=== PATIENT | female | born 2000 ===

== ENCOUNTER 2023-12-25 11:16 | Emergency (ER) | payer SELFPAY ==
[2023-12-25 11:23] VITALS: BP 120/67; PULSE 100; RESP 16; TEMP 37.2; O2SAT 100
--- NOTE | 2023-12-25 13:18 | PC.NURSE ---
Called out several times by Christie ARGUELLO, no [email or web address]
== END 2023-12-25 13:48 | disposition left against medical advice (07) ==
DX: Z53.21 Procedure and treatment not carried out due to patient leaving prior to being seen by health care provider (principal)
CPT/HCPCS: 99199